=== PATIENT | male | born 1950 | race Caucasian/White ===

== ENCOUNTER 2019-11-09 19:52 | Emergency (ER) | payer MEDICARE, OTHER ==
[2019-11-09] MEDS ORDERED: Sodium Chloride 0.9% 1,000 ML ONE (19:59)
[2019-11-09] MEDS ORDERED: Sodium Chloride 0.9% 1,000 ML IV ONE (20:10)
[2019-11-09] MEDS ORDERED: Sodium Chloride 0.9% 10 ML Syringe FLUSH PRN (20:18)
--- NOTE | 2019-11-09 20:35 | EDM.PDOC ---
ED HPI GENERAL MEDICAL PROBLEM - General Chief Complaint: Fever Stated Complaint: S/P CHEMO FEVER Time Seen by Provider: 11/09/19 20:10 Source of Information: Reports: Patient History Limitations: Reports: No Limitations - History of Present Illness INITIAL COMMENTS - FREE TEXT/NARRATIVE: 69 YO WM WITH PMH OF MULTIPLE MYELOMA WHO I RECEIVED CHEMO TODAY AND SOON AFTERWARDS DEVELOPED FEVER/CHILLS. PT REPORTS TAKING TYLENOL EARLIER THIS PM AND STILL FELT FEVERISH PROMPTING ER EVALUATION. PT DENIES RECENT ILLNESS. NO COUGH/CONGESTION, NO CHEST PAIN/SHORTNESS OF BREATH, NO N/V/D. PT CURRENTLY WITH ORAL TEMP OF 100.2. PT DENIES DYSURIA OR URINARY FREQUENCY/URGENCY. PT ALERT AND ORIENTED X 4 AND APPEARS IN NAD. Onset: Today Duration: Hour(s): (4) Location: Reports: Generalized Quality: Reports: Ache Severity: Mild Improves with: Reports: None Worsens with: Reports: None Associated Symptoms: Reports: Fever/Chills. Denies: Chest Pain, Cough, Headaches, Loss of Appetite, Malaise, Nausea/Vomiting, Shortness of Breath, Syncope, Weakness Treatments CHORUS DANCER: Reports: Acetaminophen - Related Data Allergies Allergy/AdvReac Type Severity Reaction Status Date / Time No Known Drug Allergies Allergy Cannot Verified 11/09/19 20:27 Remember Home Meds: Home Meds Brimonidine Tartrate [Brimonidine Tartrate 0.2% Ophth Soln] 1 drop EYEBOTH Q12H 03/11/17 [History] Pantoprazole [ProTONIX] 40 mg PO ACBREAKFAST 03/11/17 [History] Acyclovir 400 mg PO BID 10/14/17 [History] Aspirin 81 mg PO DAILY 10/14/17 [History] Cholecalciferol (Vitamin D3) [Vitamin D3] 2,000 units PO DAILY 10/14/17 [History] Loratadine [Claritin] 10 mg PO DAILY PRN 10/14/17 [History] Metoprolol Tartrate [Lopressor] 12.5 mg PO BID 10/14/17 [History] Calcium Citrate/Vitamin D3 [Calcium Citrate - Vit D3 Tab] 1 tab PO TID 01/06/18 [History] Bortezomib [Velcade] 2.3 mg SUBCUT ASDIRECTED 01/22/18 [History] Zoledronic Acid in Water [Zometa 4 MG/100 ML] 4 mg IV ASDIRECTED 03/31/18 [History] Rosuvastatin Calcium 2.5 mg PO BEDTIME 05/12/18 [History] Multivitamin [Multivitamins] 1 each PO DAILY 08/04/18 [History] Lidocaine 5% 1 applic RECTAL DAILY PRN 12/10/18 [History] Past Medical History HEENT History: Reports: Cataract, Glaucoma Cardiovascular History: Reports: Hypertension Gastrointestinal History: Reports: GERD Musculoskeletal History: Reports: Back Pain, Chronic Psychiatric History: Reports: None Endocrine/Metabolic History: Reports: Vitamin D Deficiency Hematologic History: Reports: Anemia, Other (See Below) Other Hematologic History: h/o hyperviscosity Immunologic History: Reports: Immunosuppression Oncologic (Cancer) History: Reports: Other (See Below) Other Oncologic History: Diagnosed in Feb 2017 with multiple myeloma Dermatologic History: Reports: None - Infectious Disease History Infectious Disease History: Reports: Chicken Pox, Measles, Mumps - Past Surgical History HEENT Surgical History: Reports: Cataract Surgery, Tonsillectomy Cardiovascular Surgical History: Reports: None GI Surgical History: Reports: Colonoscopy, Hernia Repair/Other Endocrine Surgical History: Reports: None Musculoskeletal Surgical History: Reports: Carpal Tunnel Other Musculoskeletal Surgeries/Procedures:: back surgery Oncologic Surgical History: Reports: Bone Marrow Transplant Other Oncologic Surgeries/Procedures: 2018 Dermatological Surgical History: Reports: None Social & Family History - Family History Family Medical History: Noncontributory - Caffeine Use Caffeine Use: Reports: Coffee - Living Situation & Occupation Living situation: Reports: ED ROS GENERAL - Review of Systems Review Of Systems: See Below Constitutional: Reports: Fever, Chills HEENT: Reports: No Symptoms Respiratory: Reports: No Symptoms Cardiovascular: Reports: No Symptoms Endocrine: Reports: No Symptoms GI/Abdominal: Reports: No Symptoms : Reports: No Symptoms Musculoskeletal: Reports: No Symptoms Skin: Reports: No Symptoms Neurological: Reports: No Symptoms Psychiatric: Reports: No Symptoms Hematologic/Lymphatic: Reports: No Symptoms Immunologic: Reports: No Symptoms ED EXAM, GENERAL - Physical Exam Exam: See Below Exam Limited By: No Limitations General Appearance: Alert, WD/WN, No Apparent Distress Ears: Normal External Exam, Normal Canal, Hearing Grossly Normal, Normal TMs Nose: Normal Inspection, Normal Mucosa, No Blood Throat/Mouth: Normal Inspection, Normal Lips, Normal Teeth, Normal Gums, Normal Oropharynx, Normal Voice, No Airway Compromise Head: Atraumatic, Normocephalic Neck: Normal Inspection, Supple, Non-Tender, Full Range of Motion Respiratory/Chest: No Respiratory Distress, Lungs Clear, Normal Breath Sounds, No Accessory Muscle Use, Chest Non-Tender Cardiovascular: Normal Peripheral Pulses, Regular Rate, Rhythm, No Edema, No Gallop, No JVD, No Murmur, No Rub GI/Abdominal: Normal Bowel Sounds, Soft, Non-Tender, No Organomegaly, No Distention, No Abnormal Bruit, No Mass Back Exam: Normal Inspection, Full Range of Motion, NT Extremities: Normal Inspection, Normal Range of Motion, Non-Tender, Normal Capillary Refill, No Pedal Edema Neurological: Alert, Oriented, CN II-XII Intact, Normal Cognition, Normal Gait, Normal Reflexes, No Motor/Sensory Deficits Psychiatric: Normal Affect, Normal Mood Skin Exam: Warm, Dry, Intact, Normal Color, No Rash Lymphatic: No Adenopathy Course - Vital Signs Last Recorded V/S: Last Vital Signs Temp 37.5 C 11/09/19 20:43 Pulse 78 11/09/19 21:11 Resp 18 11/09/19 21:11 BP 140/76 11/09/19 21:11 Pulse Ox 96 11/09/19 21:11 - Orders/Labs/Meds Orders: Active Orders 24 hr Category Date Time Status Peripheral IV Care [RC] . DIRECTED Care 11/09/19 20:19 Ordered CULTURE BLOOD [BC] Stat Lab 11/09/19 20:19 Ordered CULTURE BLOOD [BC] Stat Lab 11/09/19 20:19 Ordered Sodium Chloride 0.9% [Saline Flush] Med 11/09/19 20:18 Ordered 10 ml FLUSH Q8HR PRN Blood Culture x2 Reflex Set [OM.PC] Stat Oth 11/09/19 20:18 Ordered Peripheral IV Insertion Adult [OM.PC] Routine Oth 11/09/19 20:18 Ordered Medication Orders Sodium Chloride (Saline Flush) 10 ml FLUSH Q8HR PRN PRN Reason: keep vein open Labs: Laboratory Tests 11/09/19 11/09/19 11/09/19 Range/Units 20:10 20:10 20:10 WBC 10.93 H (5.00-10.00) 10^3/uL RBC 4.15 L (4.50-6.00) 10^6/uL Hgb 13.5 (13.0-17.0) g/dL Hct 39.6 L (40.0-52.0) % MCV 95.4 H (82.0-92.0) fL MCH 32.5 H (27.0-31.0) pg MCHC 34.1 (32.0-36.0) g/dL RDW 12.6 (11.5-14.5) % Plt Count 204 (150-400) 10^3/uL MPV 9.0 (7.4-10.4) fL Immature Gran % (Auto) 0.2 (0.0-5.0) % Neut % (Auto) 79.8 H (50.0-70.0) % Lymph % (Auto) 13.0 L (20.0-40.0) % [place] % (Auto) 6.8 (2.0-8.0) % Eos % (Auto) 0.1 L (1.0-3.0) % Baso % (Auto) 0.1 (0.0-1.0) % Neut # (Auto) 8.73 H (2.50-7.00) 10^3/uL Lymph # (Auto) 1.42 (1.00-4.00) 10^3/uL [place] # (Auto) 0.74 (0.10-0.80) 10^3/uL Eos # (Auto) 0.01 L (0.10-0.30) 10^3/uL Baso # (Auto) 0.01 (0.00-0.10) 10^3/uL Immature Gran # (Auto) 0.02 (0.00-0.50) 10^3/uL Sodium 138 (136-145) mmol/L Potassium 3.4 (3.3-5.3) mmol/L Chloride 101 (98-115) mmol/L Carbon Dioxide 24.4 (21.0-32.0) mmol/L Anion Gap 16.0 H (5-15) mmol/L BUN 16 (6-25) mg/dL Creatinine 0.85 (0.51-1.17) mg/dL Est Cr Clr Drug Dosing 75.69 mL/min Estimated GFR (MDRD) > 60 mL/min Glucose 115 H (75 - 99) mg/dL Lactic Acid 0.7 (0.4-2.0) mmol/L Calcium 8.4 L (8.7-10.3) mg/dL Total Bilirubin 0.7 (0.2-1.0) mg/dL AST 17 (15-37) U/L ALT 29 (12-78) U/L Alkaline Phosphatase 39 L (46-116) IU/L Total Protein 7.2 (6.4-8.2) g/dL Albumin 4.02 (3.00-4.80) g/dL Specimen Type Urine Color (YELLOW) Urine Appearance (CLEAR) Urine pH (5.0-9.0) Ur Specific Rarden (1.005-1.030) Urine Protein (NEGATIVE) mg/dL Urine Glucose (UA) (NEGATIVE) mg/dL Urine Ketones (NEGATIVE) mg/dL Urine Occult Blood (NEGATIVE) Urine Nitrite (NEGATIVE) Urine Bilirubin (NEGATIVE) Urine Urobilinogen (0.2-1.0) E.U./dL Ur Leukocyte Esterase (NEGATIVE) Urine RBC (0-5) /HPF Urine WBC (0-5) /HPF Ur Epithelial Cells /LPF Urine Bacteria (NONE TO FEW) /HPF Urine Mucus (NEGATIVE) /LPF 11/09/19 Range/Units 20:28 WBC (5.00-10.00) 10^3/uL RBC (4.50-6.00) 10^6/uL Hgb (13.0-17.0) g/dL Hct (40.0-52.0) % MCV (82.0-92.0) fL MCH (27.0-31.0) pg MCHC (32.0-36.0) g/dL RDW (11.5-14.5) % Plt Count (150-400) 10^3/uL MPV (7.4-10.4) fL Immature Gran % (Auto) (0.0-5.0) % Neut % (Auto) (50.0-70.0) % Lymph % (Auto) (20.0-40.0) % [place] % (Auto) (2.0-8.0) % Eos % (Auto) (1.0-3.0) % Baso % (Auto) (0.0-1.0) % Neut # (Auto) (2.50-7.00) 10^3/uL Lymph # (Auto) (1.00-4.00) 10^3/uL [place] # (Auto) (0.10-0.80) 10^3/uL Eos # (Auto) (0.10-0.30) 10^3/uL Baso # (Auto) (0.00-0.10) 10^3/uL Immature Gran # (Auto) (0.00-0.50) 10^3/uL Sodium (136-145) mmol/L Potassium (3.3-5.3) mmol/L Chloride (98-115) mmol/L Carbon Dioxide (21.0-32.0) mmol/L Anion Gap (5-15) mmol/L BUN (6-25) mg/dL Creatinine (0.51-1.17) mg/dL Est Cr Clr Drug Dosing mL/min Estimated GFR (MDRD) mL/min Glucose (75 - 99) mg/dL Lactic Acid (0.4-2.0) mmol/L Calcium (8.7-10.3) mg/dL Total Bilirubin (0.2-1.0) mg/dL AST (15-37) U/L ALT (12-78) U/L Alkaline Phosphatase (46-116) IU/L Total Protein (6.4-8.2) g/dL Albumin (3.00-4.80) g/dL Specimen Type Urinvoid Urine Color Yellow (YELLOW) Urine Appearance Clear (CLEAR) Urine pH 5.5 (5.0-9.0) Ur Specific Rarden >= 1.030 (1.005-1.030) Urine Protein Negative (NEGATIVE) mg/dL Urine Glucose (UA) Negative (NEGATIVE) mg/dL Urine Ketones 80 H (NEGATIVE) mg/dL Urine Occult Blood Trace-intact H (NEGATIVE) Urine Nitrite Negative (NEGATIVE) Urine Bilirubin Small H (NEGATIVE) Urine Urobilinogen 0.2 (0.2-1.0) E.U./dL Ur Leukocyte Esterase Negative (NEGATIVE) Urine RBC 0-5 (0-5) /HPF Urine WBC 0-5 (0-5) /HPF Ur Epithelial Cells Few /LPF Urine Bacteria Not seen (NONE TO FEW) /HPF Urine Mucus Many H (NEGATIVE) /LPF Meds: Medications Generic Name Dose Route Start Last Admin Trade Name Freq PRN Reason Stop Dose Admin Sodium Chloride 10 ml 11/09/19 20:18 Saline Flush FLUSH Q8HR PRN keep vein open Discontinued Medications Generic Name Dose Route Start Last Admin Trade Name Freq PRN Reason Stop Dose Admin Sodium Chloride Confirm 11/09/19 19:59 11/09/19 20:31 Normal Saline Administered 11/09/19 20:00 Not Given Dose 1,000 mls @ as directed .ROUTE .STK-MED ONE Sodium Chloride 1,000 mls @ 999 mls/hr 11/09/19 20:10 11/09/19 20:31 Normal Saline IV 11/09/19 21:10 999 mls/hr .BOLUS ONE Administration - Radiology Interpretation Free Text/Narrative:: CXR- NAD Departure - Departure Time of Disposition: 21:24 Disposition: Home, Self-Care 01 Condition: Good Clinical Impression: Fever and chills - Discharge Information Instructions: Fever, Adult Referrals: Yajaira Azul PA-C [Primary Care Provider] - Forms: ED Department Discharge Additional Instructions: 1. DISCHARGE HOME 2. FOLLOW UP BLOOD CULTURES 3. TYLENOL 1G EVERY 6 HOURS NEEDED FOR FEVER 4. MOTRIN 600MG EVERY 6 HOURS FOR FEVER NEEDED 5. FOLLOW UP WITH PCP FOR RECHECK NEXT 48 HOURS FOR FURTHER EVALUATION AND TREATMENT 6. RETURN TO ER FOR WORSENING SYMPTOMS Sepsis Event Note (ED) - Focused Exam Vital Signs: Vital Signs Temp Temp Pulse Resp BP Pulse Ox 11/09/19 21:11 78 18 140/76 96 11/09/19 20:43 37.5 C 11/09/19 20:34 93 16 153/81 H 96 11/09/19 20:00 37.8 C 36.9 C 95 16 126/76 96 - My Orders Last 24 Hours: My Active Orders 11/09/19 20:18 Sodium Chloride 0.9% [Saline Flush] 10 ml FLUSH Q8HR PRN Blood Culture x2 Reflex Set [OM.PC] Stat Peripheral IV Insertion Adult [OM.PC] Routine 11/09/19 20:19 Peripheral IV Care [RC] . DIRECTED CULTURE BLOOD [BC] Stat CULTURE BLOOD [BC] Stat - Assessment/Plan Last 24 Hours: My Active Orders 11/09/19 20:18 Sodium Chloride 0.9% [Saline Flush] 10 ml FLUSH Q8HR PRN Blood Culture x2 Reflex Set [OM.PC] Stat Peripheral IV Insertion Adult [OM.PC] Routine 11/09/19 20:19 Peripheral IV Care [RC] . DIRECTED CULTURE BLOOD [BC] Stat CULTURE BLOOD [BC] Stat Assessment:: 1. FEVER S/P CHEMOTHERAPY Plan: 1. DISCHARGE HOME 2. FOLLOW UP BLOOD CULTURES 3. TYLENOL 1G EVERY 6 HOURS NEEDED FOR FEVER 4. MOTRIN 600MG EVERY 6 HOURS FOR FEVER NEEDED 5. FOLLOW UP WITH PCP FOR RECHECK NEXT 48 HOURS FOR FURTHER EVALUATION AND TREATMENT 6. RETURN TO ER FOR WORSENING SYMPTOMS
--- NOTE | 2019-11-09 20:38 | CR ---
[id number] RAD/RAD Chest PA And Lateral EXAM: RAD Chest PA And Lateral CLINICAL DATA: FEVER COMPARISON: CORRELATION IS MADE WITH MARCH 28, 2019 FINDINGS: The lungs are clear The cardiomediastinal contour is stable An old fracture deformity of the left eighth rib is seen IMPRESSION: NO INFILTRATE Ellis Gonzáles MD 11/09/191 Thank you for allowing us to participate in the care of your patient.
[2019-11-09 21:04] LABS: CHLORIDE,CL 101 mmol/L (98-115); SODIUM,NA 138 mmol/L (136-145)
[2019-11-09 21:12] VITALS: BP 140/76; PULSE 78
== END 2019-11-09 21:30 | disposition home or self-care (01) ==
LOC: KA.ED 19:52
DX: R50.2 Drug induced fever (principal); T45.1X5A Adverse effect of antineoplastic and immunosuppressive drugs, initial encounter; I10 Essential (primary) hypertension; K21.9 Gastro-esophageal reflux disease without esophagitis; Z79.899 Other long term (current) drug therapy; Z79.82 Long term (current) use of aspirin
CPT/HCPCS: 36415; 71046; 80053; 81001; 83605; 85025; 87040; 96360; 99283-25; 99284; J7030

== ENCOUNTER 2019-12-26 09:03 | Day surgery (SDC) | payer MEDICARE, OTHER ==
[~2019-12-26 09:03] MED LIST: Lactated Ringers 1,000 ML IV SCH; Midazolam 1 MG/ML 2 ML SDV ONE; Propofol 200 MG/20 ML SDV ONE; Sodium Chloride 0.9% 10 ML Syringe FLUSH PRN
[2019-12-26] MEDS ORDERED: Glycopyrrolate 0.2 MG/ML 5 ML MDV IV ONE (09:04)
[2019-12-26] MEDS ORDERED: Propofol 200 MG/20 ML SDV IV ONE (09:04)
[2019-12-26] MEDS ORDERED: Midazolam 1 MG/ML 2 ML SDV IV ONE (09:04)
--- NOTE | 2019-12-26 10:15 | PCM.OPNOTE ---
- General Post-Op/Procedure Note Date of Surgery/Procedure: 12/26/19 Operative Procedure(s): colonoscopy Findings: Normal. Pre Op Diagnosis: H/O of colon Polyps. Follow up. Anesthesia Technique: MAC Primary Surgeon: Nikky Chavis Complications: None Condition: Good Free Text/Narrative:: INFORMED CONSENT: Patient is here today for elective colonoscopy. All aspects of this procedure have been discussed with the patient. All possible complications also, including possibility of perforation, infection, pain, bleeding and unknown complications. In the event of perforation patient may need to have abdominal exploration, colon resection, colostomy and even was discussed. Anesthetic complications were handled by anesthesia department. The patient understands fully well. Patient did not have any further questions for me at the end of my interview. The patient wishes for me to proceed. PREOPERATIVE DIAGNOSIS/INDICATIONS: [H/O colon polyps.] POSTOPERATIVE DIAGNOSIS: [Normal. ] INSTRUMENT USED: Olympus videocolonoscope. ASA CLASSIFICATION: [2] ANESTHESIA: Continuous EKG, oximetry and intermittent blood pressure and respiratory monitoring were performed throughout the procedure. IV Versed and Fentanyl were administered. PROCEDURE PERFORMED: Colonoscopy POSITIONS OF PATIENT: Left lateral. RECTUM: Normal. SIGMOID COLON: A few diverticuli were seen. . DESCENDING COLON: Normal. SPLENIC FLEXURE: Normal. TRANSVERSE COLON: Normal. HEPATIC FLEXURE: Normal. ASCENDING COLON: Normal. CECUM: Normal. ILEOCECAL VALVE: Normal. BIOPSY: None. TOLERANCE: Excellent. COMPLICATIONS: None.
[2019-12-26 11:53] VITALS: BP 110/61; PULSE 56
== END 2019-12-26 11:30 | disposition home or self-care (01) ==
LOC: KA.SDS 09:03
PROVIDERS: ATTEND Family Medicine
DX: Z12.11 Encounter for screening for malignant neoplasm of colon (principal); K57.30 Diverticulosis of large intestine without perforation or abscess without bleeding; Z86.010 Personal history of colon polyps; Z98.890 Other specified postprocedural states; K21.9 Gastro-esophageal reflux disease without esophagitis; I10 Essential (primary) hypertension; E78.00 Pure hypercholesterolemia, unspecified; C90.00 Multiple myeloma not having achieved remission; F41.9 Anxiety disorder, unspecified; I25.10 Atherosclerotic heart disease of native coronary artery without angina pectoris; E78.5 Hyperlipidemia, unspecified; Z94.84 Stem cells transplant status; Z79.82 Long term (current) use of aspirin; Z79.899 Other long term (current) drug therapy
CPT/HCPCS: G0105; J2250; J2704; J3490; J7120; 00812

== ENCOUNTER 2023-01-12 16:21 | Emergency (ER) | payer MEDICARE, OTHER ==
[2023-01-12 17:00] LABS: BASOPHILS ABSOLUTE AUTO 0.01 10^3/uL (0.00-0.10); BASOPHILS PERCENT AUTO 0.2 % (0.0-1.0); EOSINOPHILS ABSOLUTE AUTO 0.07 10^3/uL (0.10-0.30); EOSINOPHILS PERCENT AUTO 1.4 % (1.0-3.0); HEMATOCRIT 39.1 % (40.0-52.0); HEMOGLOBIN 12.6 g/dL (13.0-17.0); IMMATURE GRAN ABSOLUTE AUTO 0.02 10^3/uL (0.00-0.50); IMMATURE GRAN PERCENT AUTO 0.4 % (0.0-5.0); LYMPHOCYTES ABSOLUTE AUTO 1.66 10^3/uL (1.00-4.00); LYMPHOCYTES PERCENT AUTO 33.5 % (20.0-40.0); MEAN CORPUSCULAR HGB CONC 32.2 g/dL (32.0-36.0); MEAN CORPUSCULAR VOLUME 96.1 fL (82.0-92.0); MEAN PLATELET VOLUME 10.3 fL (7.4-10.4); MONOCYTES ABSOLUTE AUTO 0.67 10^3/uL (0.10-0.80); MONOCYTES PERCENT AUTO 13.5 % (2.0-8.0); NEUTROPHILS ABSOLUTE AUTO 2.52 10^3/uL (2.50-7.00); PLATELET COUNT,PLT 301 10^3/uL (150-400); RED BLOOD CELL COUNT 4.07 10^6/uL (4.50-6.00); RED CELL DISTRIBUTION WIDTH 15.1 % (11.5-14.5); WHITE BLOOD CELL COUNT,WBC 4.95 10^3/uL (5.00-10.00)
[2023-01-12 17:14] LABS: ANION GAP 12.5 mmol/L (5-15); CALCIUM 8.9 mg/dL (8.7-10.3); CARBON DIOXIDE,CO2 27.3 mmol/L (21.0-32.0); CREATININE 1.14 mg/dL (0.51-1.17); EST CRCL DRUG DOSING (CG) 52.23 mL/min; POTASSIUM,K 3.8 mmol/L (3.5-5.1)
[2023-01-12] MEDS ORDERED: Aspirin 81 MG Tab.Chew PO ONE (17:17)
[2023-01-12] MEDS ORDERED: Heparin Sodium/D5W 250 ML IV SCH (17:30)
[2023-01-12 18:07] VITALS: BP 152/80; PULSE 70
== END 2023-01-12 18:15 ==
LOC: KA.ED 16:21
DX: I21.4 Non-ST elevation (NSTEMI) myocardial infarction (principal); R79.89 Other specified abnormal findings of blood chemistry; C90.01 Multiple myeloma in remission; E78.00 Pure hypercholesterolemia, unspecified; I10 Essential (primary) hypertension; K21.9 Gastro-esophageal reflux disease without esophagitis; Z87.891 Personal history of nicotine dependence; Z79.82 Long term (current) use of aspirin; Z79.899 Other long term (current) drug therapy
CPT/HCPCS: 36415; 80048; 84484; 85025; 96365; 99284; 99285-25; A9270-GY; J1644

== ENCOUNTER 2023-01-26 18:04 | Emergency (ER) | payer MEDICARE, OTHER ==
[2023-01-26 19:24] LABS: BASOPHILS ABSOLUTE AUTO 0.01 10^3/uL (0.00-0.10); BASOPHILS PERCENT AUTO 0.2 % (0.0-1.0); EOSINOPHILS ABSOLUTE AUTO 0.06 10^3/uL (0.10-0.30); HEMATOCRIT 40.1 % (40.0-52.0); HEMOGLOBIN 12.6 g/dL (13.0-17.0); IMMATURE GRAN ABSOLUTE AUTO 0.03 10^3/uL (0.00-0.50); IMMATURE GRAN PERCENT AUTO 0.5 % (0.0-5.0); LYMPHOCYTES ABSOLUTE AUTO 2.24 10^3/uL (1.00-4.00); LYMPHOCYTES PERCENT AUTO 36.9 % (20.0-40.0); MEAN CORPUSCULAR HEMOGLOBIN 29.1 pg (27.0-31.0); MEAN CORPUSCULAR HGB CONC 31.4 g/dL (32.0-36.0); MEAN CORPUSCULAR VOLUME 92.6 fL (82.0-92.0); MEAN PLATELET VOLUME 9.6 fL (7.4-10.4); MONOCYTES PERCENT AUTO 8.2 % (2.0-8.0); NEUTROPHILS ABSOLUTE AUTO 3.23 10^3/uL (2.50-7.00); NEUTROPHILS PERCENT AUTO 53.2 % (50.0-70.0); PLATELET COUNT,PLT 478 10^3/uL (150-400); RED BLOOD CELL COUNT 4.33 10^6/uL (4.50-6.00); WHITE BLOOD CELL COUNT,WBC 6.07 10^3/uL (5.00-10.00)
[2023-01-26 19:27] LABS: ANION GAP 13.5 mmol/L (5-15); BLOOD UREA NITROGEN,BUN 13 mg/dL (7-18); CALCIUM 8.7 mg/dL (8.7-10.3); CARBON DIOXIDE,CO2 25.3 mmol/L (21.0-32.0); CHLORIDE,CL 100 mmol/L (98-107); CREATININE 0.91 mg/dL (0.51-1.17); GLUCOSE RANDOM 128 mg/dL (70-140); POTASSIUM,K 3.8 mmol/L (3.5-5.1); SODIUM,NA 135 mmol/L (136-145)
[2023-01-26 19:31] LABS: INR 1.1 (0.9-1.1); PROTHROMBIN TIME 10.9 SEC (9.2-11.2); PTT,PARTIAL THROMBOPLSTIN TIME 23.9 SEC (22.8-31.4)
[2023-01-26 19:37] LABS: ESTIMATED GFR 88 mL/min (>=60)
[2023-01-26 19:55] VITALS: BP 142/88; PULSE 98
== END 2023-01-26 18:45 ==
LOC: KA.ED 18:04
DX: I63.9 Cerebral infarction, unspecified (principal); C90.01 Multiple myeloma in remission; K21.9 Gastro-esophageal reflux disease without esophagitis; I10 Essential (primary) hypertension; E78.00 Pure hypercholesterolemia, unspecified; Z79.82 Long term (current) use of aspirin; Z79.899 Other long term (current) drug therapy
CPT/HCPCS: 36415; 51702; 70450; 80048; 84484; 85025; 85610; 85730; 93005; 93010; 99284; 99285; Q3014

== ENCOUNTER 2024-12-27 18:12 | Inpatient (IN) | payer MEDICARE, OTHER ==
[2024-12-27 18:50] LABS: BASOPHILS ABSOLUTE AUTO 0.00 10^3/uL (0.00-0.10); BASOPHILS PERCENT AUTO 0.0 % (0.0-1.0); EOSINOPHILS ABSOLUTE AUTO 0.01 10^3/uL (0.10-0.30); EOSINOPHILS PERCENT AUTO 0.1 % (1.0-3.0); IMMATURE GRAN ABSOLUTE AUTO 0.02 10^3/uL (0.00-0.04); IMMATURE GRAN PERCENT AUTO 0.1 % (0.0-0.4); LYMPHOCYTES ABSOLUTE AUTO 0.96 10^3/uL (1.00-4.00); LYMPHOCYTES PERCENT AUTO 7.2 % (20.0-40.0); MEAN PLATELET VOLUME 9.7 fL (7.4-10.4); MONOCYTES ABSOLUTE AUTO 0.76 10^3/uL (0.10-0.80); MONOCYTES PERCENT AUTO 5.7 % (2.0-8.0); NEUTROPHILS ABSOLUTE AUTO 11.61 10^3/uL (2.50-7.00); NEUTROPHILS PERCENT AUTO 86.9 % (50.0-70.0); PLATELET COUNT,PLT 222 10^3/uL (150-400); RED BLOOD CELL COUNT 3.91 10^6/uL (4.50-6.00); RED CELL DISTRIBUTION WIDTH 14.1 % (11.5-14.5); WHITE BLOOD CELL COUNT,WBC 13.36 10^3/uL (5.00-10.00)
[2024-12-27 19:03] LABS: BLOOD UREA NITROGEN,BUN 18.0 mg/dL (7-18); CARBON DIOXIDE,CO2 25.8 mmol/L (21.0-32.0); CHLORIDE,CL 101.0 mmol/L (98-107); CREATININE 0.64 mg/dL (0.51-1.17); EST CRCL DRUG DOSING (CG) 88.61 mL/min; GLUCOSE RANDOM 151.0 mg/dL (70-140); POTASSIUM,K 3.7 mmol/L (3.5-5.1); SODIUM,NA 137.0 mmol/L (136-145)
[2024-12-27 19:06] LABS: ESTIMATED GFR 98.0 mL/min (>=60)
[2024-12-27 23:54] LABS: GLUCOSE,URINE NEGATIVE (NEGATIVE); OCCULT BLOOD,URINE MODERATE (NEGATIVE)
[2024-12-27 23:58] LABS: LACTIC ACID 1.2 mmol/L (0.4-2.0)
[2024-12-28 00:02] LABS: APPEARANCE,URINE SLIGHTLY CLOUDY (CLEAR)
[2024-12-28 00:03] LABS: EPITHELIAL CELLS,URINE RARE /LPF
[2024-12-28] MEDS: Brimonidine 0.2% Ophth Soln 15 ML Bottle EYEBOTH SCH ×2 (00:38→08:39)
[2024-12-28] MEDS: levETIRAcetam 500 MG/5 ML SDV IVPUSH ONE (00:39)
[2024-12-28 07:15] LABS: BASOPHILS ABSOLUTE AUTO 0.00 10^3/uL (0.00-0.10); BASOPHILS PERCENT AUTO 0.0 % (0.0-1.0); EOSINOPHILS ABSOLUTE AUTO 0.04 10^3/uL (0.10-0.30); EOSINOPHILS PERCENT AUTO 0.7 % (1.0-3.0); IMMATURE GRAN ABSOLUTE AUTO 0.02 10^3/uL (0.00-0.04); IMMATURE GRAN PERCENT AUTO 0.3 % (0.0-0.4); LYMPHOCYTES ABSOLUTE AUTO 0.77 10^3/uL (1.00-4.00); LYMPHOCYTES PERCENT AUTO 13.2 % (20.0-40.0); MEAN PLATELET VOLUME 9.3 fL (7.4-10.4); MONOCYTES ABSOLUTE AUTO 0.44 10^3/uL (0.10-0.80); MONOCYTES PERCENT AUTO 7.5 % (2.0-8.0); NEUTROPHILS ABSOLUTE AUTO 4.58 10^3/uL (2.50-7.00); NEUTROPHILS PERCENT AUTO 78.3 % (50.0-70.0); PLATELET COUNT,PLT 192 10^3/uL (150-400); RED BLOOD CELL COUNT 3.52 10^6/uL (4.50-6.00); RED CELL DISTRIBUTION WIDTH 14.4 % (11.5-14.5); WHITE BLOOD CELL COUNT,WBC 5.85 10^3/uL (5.00-10.00)
[2024-12-28 07:46] LABS: BLOOD UREA NITROGEN,BUN 14.0 mg/dL (7-18); CARBON DIOXIDE,CO2 29.8 mmol/L (21.0-32.0); CHLORIDE,CL 104.0 mmol/L (98-107); CREATININE 0.73 mg/dL (0.51-1.17); EST CRCL DRUG DOSING (CG) 80.49 mL/min; GLUCOSE RANDOM 94.0 mg/dL (70-140); POTASSIUM,K 3.7 mmol/L (3.5-5.1); SODIUM,NA 140.0 mmol/L (136-145)
[2024-12-28 08:18] LABS: ESTIMATED GFR 94.0 mL/min (>=60)
[2024-12-28] MEDS: Fluticasone NASAL Spray 16 GM Bottle NASBOTH SCH (08:40)
[2024-12-29] MEDS ORDERED: Acetaminophen 650 MG Tab.ER PO PRN (08:16)
[2024-12-29] MEDS ORDERED: CYCLOPHOSPHAMIDE 50 MG PO SCH (08:30)
[2024-12-29] MEDS: Omeprazole 20 MG Cap.CR PO SCH (09:21)
[2024-12-30 07:28] LABS: BASOPHILS ABSOLUTE AUTO 0.01 10^3/uL (0.00-0.10); BASOPHILS PERCENT AUTO 0.3 % (0.0-1.0); EOSINOPHILS ABSOLUTE AUTO 0.07 10^3/uL (0.10-0.30); EOSINOPHILS PERCENT AUTO 2.1 % (1.0-3.0); IMMATURE GRAN ABSOLUTE AUTO 0.01 10^3/uL (0.00-0.04); IMMATURE GRAN PERCENT AUTO 0.3 % (0.0-0.4); LYMPHOCYTES ABSOLUTE AUTO 0.84 10^3/uL (1.00-4.00); LYMPHOCYTES PERCENT AUTO 24.9 % (20.0-40.0); MEAN PLATELET VOLUME 9.4 fL (7.4-10.4); MONOCYTES ABSOLUTE AUTO 0.42 10^3/uL (0.10-0.80); MONOCYTES PERCENT AUTO 12.4 % (2.0-8.0); NEUTROPHILS ABSOLUTE AUTO 2.03 10^3/uL (2.50-7.00); NEUTROPHILS PERCENT AUTO 60.0 % (50.0-70.0); PLATELET COUNT,PLT 200 10^3/uL (150-400); RED BLOOD CELL COUNT 3.49 10^6/uL (4.50-6.00); RED CELL DISTRIBUTION WIDTH 14.5 % (11.5-14.5); WHITE BLOOD CELL COUNT,WBC 3.38 10^3/uL (5.00-10.00)
[2024-12-30 07:50] LABS: ALANINE AMINOTRANSFERASE,ALT 37.0 U/L (14-63); ASPARTATE AMNIOTRANSFERASE,AST 30.0 U/L (15-37); BILIRUBIN TOTAL 0.4 mg/dL (0.2-1.0); BLOOD UREA NITROGEN,BUN 15.0 mg/dL (7-18); CARBON DIOXIDE,CO2 30.4 mmol/L (21.0-32.0); CHLORIDE,CL 107.0 mmol/L (98-107); CREATININE 0.69 mg/dL (0.51-1.17); EST CRCL DRUG DOSING (CG) 85.15 mL/min; GLUCOSE RANDOM 94.0 mg/dL (70-140); POTASSIUM,K 4.6 mmol/L (3.5-5.1); PROTEIN TOTAL,TP 6.0 g/dL (6.4-8.2); SODIUM,NA 144.0 mmol/L (136-145)
[2024-12-30 07:52] LABS: ESTIMATED GFR 96.0 mL/min (>=60)
[2024-12-30 08:55] VITALS: PULSE 64
[2024-12-30 13:19] VITALS: BP 110/59
== END 2024-12-30 11:08 | disposition home or self-care (01) | DRG 871 ==
LOC: KA.ED 18:12 → KA.MS 20:48 → UNDOADMIN 22:08 → KA.MS 22:08 → UNDODISIN 12-30 11:08
PROVIDERS: ADMIT Internal Medicine; ATTEND Internal Medicine
DX: A41.9 Sepsis, unspecified organism (principal); J98.11 Atelectasis; D72.829 Elevated white blood cell count, unspecified; J18.9 Pneumonia, unspecified organism; R13.12 Dysphagia, oropharyngeal phase; R56.9 Unspecified convulsions; J30.9 Allergic rhinitis, unspecified; Z66 Do not resuscitate; H40.9 Unspecified glaucoma; H91.90 Unspecified hearing loss, unspecified ear; H54.7 Unspecified visual loss; I50.9 Heart failure, unspecified; E78.00 Pure hypercholesterolemia, unspecified; K59.00 Constipation, unspecified; I11.0 Hypertensive heart disease with heart failure; K21.9 Gastro-esophageal reflux disease without esophagitis; K44.9 Diaphragmatic hernia without obstruction or gangrene; N40.0 Benign prostatic hyperplasia without lower urinary tract symptoms; N20.0 Calculus of kidney; M54.9 Dorsalgia, unspecified; G89.29 Other chronic pain; E55.9 Vitamin D deficiency, unspecified; D64.9 Anemia, unspecified; I25.2 Old myocardial infarction; Z85.820 Personal history of malignant melanoma of skin; Z86.16 Personal history of COVID-19; Z98.49 Cataract extraction status, unspecified eye; Z79.01 Long term (current) use of anticoagulants; Z95.5 Presence of coronary angioplasty implant and graft; Z98.890 Other specified postprocedural states; Z86.73 Personal history of transient ischemic attack (TIA), and cerebral infarction without residual deficits; Z79.82 Long term (current) use of aspirin; Z86.711 Personal history of pulmonary embolism; Z79.899 Other long term (current) drug therapy; Z90.49 Acquired absence of other specified parts of digestive tract
CPT/HCPCS: 36415; 71046; 80048; 80053; 81001; 83605; 85025; 85730; 87040; 92610-GN; 99223-GT; 99232-GT; 99233-GT; 99239-GT; 99284; 99285; A4315; A9270-GY; J0456; J0696; J1650; J1953; J7050; Q3014